=== PATIENT | male | born 1975 | race Hispanic/Latino ===

== ENCOUNTER 2019-06-16 08:09 | Emergency (ER) | payer SELFPAY ==
[2019-06-16] MEDS ORDERED: HYDROCODONE/APAP 10/325 TAB ONE (08:44)
--- NOTE | 2019-06-16 09:08 | EDPHYS ---
Physician Documentation [facility] Name: Gia Cruz Age: 43 yrs Sex: Male : 1975 Arrival Date: 06/16/2019 Time: 08:12 Bed 14 Private MD: DANIELLE Physician Vinay Hopper HPI: 06/16 09:02 This 43 yrs old Male presents to ER via Ambulatory with complaints of Mouth luisa Swelling, mouth pain. 09:02 The patient presents with pain, redness, swelling. The problem is located in the face luisa and lower left first bicuspid (#21). Onset: The symptoms/episode began/occurred 3 day(s) ago. Duration: The symptoms are continuous, and are steadily getting worse. Modifying factors: The symptoms are alleviated by nothing, the symptoms are aggravated by chewing, food, talking. Associated signs and symptoms: The patient has no apparent associated signs or symptoms. Severity of symptoms: At their worst the symptoms were mild, moderate, in the emergency department the symptoms are unchanged. The patient has experienced similar episodes in the past, several times. Historical: - Allergies: 08:24 No Known Allergies; ss - Home Meds: 08:24 None [Active]; ss - PMHx: 08:24 None; ss - PSHx: 08:24 None; ss - Immunization history:: Adult Immunizations up to date. - Social history:: Smoking status: Patient/guardian denies using tobacco. - Ebola Screening: : Patient denies exposure to infectious person Patient denies travel to an Ebola-affected area in the 21 days before illness onset. - Family history:: not pertinent. ROS: 09:02 Constitutional: Negative for fever, chills, and weight loss, Eyes: Negative for injury, luisa pain, redness, and discharge, Neck: Negative for injury, pain, and swelling, Cardiovascular: Negative for chest pain, palpitations, and edema, Respiratory: Negative for shortness of breath, cough, wheezing, and pleuritic chest pain, Abdomen/GI: Negative for abdominal pain, nausea, vomiting, diarrhea, and constipation, Back: Negative for injury and pain, : Negative for injury, bleeding, discharge, and swelling, MS/Extremity: Negative for injury and deformity, Skin: Negative for injury, rash, and discoloration, Neuro: Negative for headache, weakness, numbness, tingling, and seizure, Psych: Negative for depression, anxiety, suicide ideation, homicidal ideation, and hallucinations, Allergy/Immunology: Negative for hives, rash, and allergies, Endocrine: Negative for neck swelling, polydipsia, polyuria, polyphagia, and marked weight changes, Hematologic/Lymphatic: Negative for swollen nodes, abnormal bleeding, and unusual bruising. 09:02 ENT: Positive for dental pain, Gum pain Exam: :02 Constitutional: This is a well developed, well nourished patient who is awake, alert, luisa and in no acute distress. Head/Face: Normocephalic, atraumatic. Eyes: Pupils equal round and reactive to light, extra-ocular motions intact. Lids and lashes normal. Conjunctiva and sclera are non-icteric and not injected. Cornea within normal limits. Periorbital areas with no swelling, redness, or edema. Neck: Trachea midline, no thyromegaly or masses palpated, and no cervical lymphadenopathy. Supple, full range of motion without nuchal rigidity, or vertebral point tenderness. No Meningismus. Chest/axilla: Normal chest wall appearance and motion. Nontender with no deformity. No lesions are appreciated. Cardiovascular: Regular rate and rhythm with a normal S1 and S2. No gallops, murmurs, or rubs. Normal PMI, no JVD. No pulse deficits. Respiratory: Lungs have equal breath sounds bilaterally, clear to auscultation and percussion. No rales, rhonchi or wheezes noted. No increased work of breathing, no retractions or nasal flaring. Abdomen/GI: Soft, non-tender, with normal bowel sounds. No distension or tympany. No guarding or rebound. No evidence of tenderness throughout. Back: No spinal tenderness. No costovertebral tenderness. Full range of motion. Skin: Warm, dry with normal turgor. Normal color with no rashes, no lesions, and no evidence of cellulitis. MS/ Extremity: Pulses equal, no cyanosis. Neurovascular intact. Full, normal range of motion. Neuro: Awake and alert, GCS 15, oriented to person, place, time, and situation. Cranial nerves II-XII grossly intact. Motor strength 5/5 in all extremities. Sensory grossly intact. Cerebellar exam normal. Normal gait. Psych: Awake, alert, with orientation to person, place and time. Behavior, mood, and affect are within normal limits. 09:02 ENT: Mouth: Oral mucosa: moist, Gums: noted to have cellulitis, reddened, swollen, on the lower left first molar and lower left second bicuspid, Posterior pharynx: is normal, airway is patent, no acute changes. Vital Signs: 08:20 BP 133 / 94; dh3 08:24 Pulse 71; Resp 16; Temp 97.5(TE); Pulse Ox 100% on R/A; Weight 102.06 kg; Height 5 ft. ss 0 in. (152.40 cm); Pain 10/10; 09:19 BP 130 / 90; Pulse 70; Resp 16; Pulse Ox 100% ; Pain 7/10; jl7 08:24 Body Mass Index 43.94 (102.06 kg, 152.40 cm) ss MDM: 08:21 Patient medically screened. [facility] 09:04 Data reviewed: vital signs, nurses notes. [facility] Administered Medications: 08:50 Drug: [place] 10 mg-325 mg 1 tabs Route: PO; [facility] 09:18 Follow up: Response: No adverse reaction; Pain is decreased [facility] 09:14 Drug: KeFLEX 500 mg Route: PO; 09:18 Follow up: Response: Medication administered at discharge. [facility] Disposition: 06/16/19 09:06 Discharged to Home. Impression: Dental caries, Dental root caries, Dental caries, unspecified. - Condition is Stable. - Discharge Instructions: Dental Caries, Adult, Dental Pain, Dental Pain, [id number], Diet and Dental Disease, Dental Caries, [id number]. - Prescriptions for Keflex 500 mg Oral Capsule - take 1 capsule by ORAL route every 6 hours for 10 days; 40 capsule. Tylenol- Codeine #3 300-30 mg Oral Tablet - take 2 tablet by ORAL route every 6 hours As needed; 30 tablet. - Medication Reconciliation Form, Thank You Letter, Antibiotic Education, Prescription Opioid Use form. - Follow up: Private Physician; When: 2 - 3 days; Reason: Recheck today's complaints, Continuance of care, Re-evaluation by your physician. Follow up: Dandy Looney DDS; When: 2 - 3 days; Reason: Recheck today's complaints, Continuance of care, Re-evaluation by your physician. - Problem is new. - Symptoms have improved. Signatures: Vinay Hopper MD MD cha Smirch, Shelby, RN RN ss Jasmine Wray RN RN jl7 Corrections: (The following items were deleted from the chart) 09:19 09:06 06/16/2019 09:06 Discharged to Home. Impression: Dental caries; Dental root jl7 caries; Dental caries, unspecified. Condition is Stable. Forms are Medication Reconciliation Form, Thank You Letter, Antibiotic Education, Prescription Opioid Use. Follow up: Private Physician; When: 2 - 3 days; Reason: Recheck today's complaints, Continuance of care, Re-evaluation by your physician. Follow up: Dandy Looney; When: 2 - 3 days; Reason: Recheck today's complaints, Continuance of care, Re-evaluation by your physician. Problem is new. Symptoms have improved. luisa
--- NOTE | 2019-06-16 09:08 | ER ---
Nurse's Notes [facility] Name: Gia Cruz Age: 43 yrs Sex: Male : 1975 Arrival Date: 06/16/2019 Time: 08:12 Bed 14 Private MD: Diagnosis: Dental caries;Dental root caries;Dental caries, unspecified Presentation: 06/16 08:20 Presenting complaint: Patient states: jaw swelling and pain x 1 week. Patient denies ss fever, reports increased pain. Transition of care: patient was not received from another setting of care. Onset of symptoms was June 09, 2019. Risk Assessment: Do you want to hurt yourself or someone else? Patient reports no desire to harm self or others. Initial Sepsis Screen: Does the patient have a suspected source of infection? Yes: Other: jaw pain/ possible dental abscess. Initial Sepsis Screen: Does the patient meet any 2 criteria? No. Patient's initial sepsis screen is negative. Care prior to arrival: None. 08:20 Method Of Arrival: Ambulatory ss 08:20 Acuity: ABIGAIL 3 ss Historical: - Allergies: 08:24 No Known Allergies; ss - Home Meds: 08:24 None [Active]; ss - PMHx: 08:24 None; ss - PSHx: 08:24 None; ss - Immunization history:: Adult Immunizations up to date. - Social history:: Smoking status: Patient/guardian denies using tobacco. - Ebola Screening: : Patient denies exposure to infectious person Patient denies travel to an Ebola-affected area in the 21 days before illness onset. - Family history:: not pertinent. Screenin:30 Abuse screen: Denies threats or abuse. Denies injuries from another. Nutritional jl7 screening: No deficits noted. Tuberculosis screening: No symptoms or risk factors identified. Fall Risk None identified. Assessment: 08:30 General: Appears in no apparent distress. uncomfortable, Behavior is calm, cooperative, jl7 appropriate for age. Pain: Complains of pain in gums Pain currently is 10 out of 10 on a pain scale. Pain began 1 week ago Is continuous. Neuro: Level of Consciousness is awake, alert, obeys commands, Oriented to person, place, time, situation. Cardiovascular: Patient's skin is warm and dry. Respiratory: Airway is patent Respiratory effort is even, unlabored, Respiratory pattern is regular, symmetrical. EENT: Oral mucosa is dry. Poor dentition noted. Dental caries noted in lower left first bicuspid (#21). Derm: Skin is pink, warm \T\ dry. Vital Signs: 08:20 BP 133 / 94; dh3 08:24 Pulse 71; Resp 16; Temp 97.5(TE); Pulse Ox 100% on R/A; Weight 102.06 kg; Height 5 ft. ss 0 in. (152.40 cm); Pain 10/10; 09:19 BP 130 / 90; Pulse 70; Resp 16; Pulse Ox 100% ; Pain 7/10; jl7 08:24 Body Mass Index 43.94 (102.06 kg, 152.40 cm) ED Course: 08:12 Patient arrived in ED. cf2 08:21 Vinay Hopper MD is Attending Physician. [facility] 08:22 Triage completed. ss 08:24 Arm band placed on right wrist. 08:30 Patient has correct armband on for positive identification. Bed in low position. Call jl7 light in reach. Side rails up X 1. Pulse ox on. NIBP on. 08:33 Jasmine Wray, RN is Primary Nurse. jl7 08:50 No provider procedures requiring assistance completed. Patient did not have IV access jl7 during this emergency room visit. 09:06 Dandy Looney DDS is Referral Physician. [facility] Administered Medications: 08:50 Drug: [place] 10 mg-325 mg 1 tabs Route: PO; jl7 09:18 Follow up: Response: No adverse reaction; Pain is decreased jl7 09:14 Drug: KeFLEX 500 mg Route: PO; 09:18 Follow up: Response: Medication administered at discharge. jl7 Outcome: 09:06 Discharge ordered by . [facility] 09:19 Discharged to home ambulatory. jl7 09:19 Condition: stable 09:19 Discharge instructions given to patient, family, Instructed on discharge instructions, follow up and referral plans. medication usage, Demonstrated understanding of instructions, follow-up care, medications, Prescriptions given X 2. 09:19 Patient left the ED. jl7 Signatures: Vinay Hopper MD MD cha Smirch, Shelby, RN RN Jasmine Wray, NGA RN 7 Kelly Wolfe [facility] Mayelin Heredia 2
[2019-06-16] MEDS ORDERED: CEPHALEXIN 250 MG CAP ONE (09:14)
== END 2019-06-16 09:19 | disposition home or self-care (01) ==
LOC: ER 08:09
DX: K02.9 Dental caries, unspecified (principal); K02.7 Dental root caries
CPT/HCPCS: 99283

== ENCOUNTER 2023-07-13 17:50 | Emergency (ER) | payer OTHER, SELFPAY ==
--- OUTSIDE RECORDS SUMMARY | 2023-07-13 18:05 | XMS REPORT | Continuity of Care Document ---
:1975 Author Organization [facility] t Address [address] [place] [address] Care Team Providers Name Role Phone Unavailable Unavailable Unavailable Problems This patient has no known problems. Allergies, Adverse Reactions, Alerts This patient has no known allergies or adverse reactions. Medications This patient has no known medications. Procedures This patient has no known procedures. Encounters Start End Encounter Admission Attending Care Care Encounter Source Date/Time Date/Time Type Type Clinicians Facility Department ID 2023-06-03 2023-06-03 Outpatient [facility] [id number] 15:48:12 15:48:12 [id number] [address] [facility] Results This patient has no known results.
--- NOTE | 2023-07-13 19:10 | RAD REPORT ---
EXAM DESCRIPTION: RAD - Foot Left 3 View - 07/13/2023 6:37 pm CLINICAL HISTORY: PAIN COMPARISON: No comparisons FINDINGS: There is a fracture of the distal shaft of the fifth metatarsal. The fracture is mildly co mminuted. Small calcaneal spurs. No dislocation.
--- NOTE | 2023-07-13 20:19 | EDPHYS ---
Physician Documentation [facility] Name: Gia Cruz Age: 47 yrs Sex: Male : 1975 Arrival Date: 07/13/2023 Time: 17:50 Bed 11 Private MD: ED Physician Preston Resendiz HPI: 07/13 21:08 This 47 yrs old Male presents to ER via Ambulatory with complaints of Foot kb Injury. 21:08 The patient presents with pain, tenderness. The complaints affect the left foot. kb Context: The problem was sustained at home, resulted from a mis-step by the patient, the patient can fully bear weight, the patient is able to ambulate. Onset: The symptoms/episode began/occurred today. Modifying factors: The symptoms are alleviated by nothing, the symptoms are aggravated by weight bearing, movement. Associated signs and symptoms: The patient has no apparent associated signs or symptoms. Severity of symptoms: At their worst the symptoms were moderate, in the emergency department the symptoms are unchanged. The patient has not experienced similar symptoms in the past. The patient has not recently seen a physician. Historical: - Allergies: 18:03 No Known Allergies; mb9 - Home Meds: 18:03 None [Active]; mb9 - PMHx: 18:03 None; mb9 - PSHx: 18:03 Appendectomy; mb9 - Immunization history:: Adult Immunizations up to date. - Social history:: Smoking status: Patient denies any tobacco usage or history of. ROS: 21:07 Constitutional: Negative for fever, chills, and weight loss, kb 21:07 MS/extremity: Positive for pain, of the left foot, 21:07 All other systems are negative, Exam: 21:07 Constitutional: This is a well developed, well nourished patient who is awake, alert, kb and in no acute distress. Head/Face: Normocephalic, atraumatic. ENT: Moist Mucous membranes Cardiovascular: Regular rate Respiratory: Respirations even and unlabored. No increased work of breathing. Talking in full sentences Skin: Warm, dry with normal turgor. Normal color. Neuro: Awake and alert, GCS 15, oriented to person, place, time, and situation. Moves all extremities. Normal gait. 21:07 Musculoskeletal/extremity: Extremities: grossly normal except: noted in the lateral side of left foot: pain, tenderness, ROM: intact in all extremities, Circulation is intact in all extremities. Sensation intact. Weight bearing: able to fully bear weight, Vital Signs: 18:02 BP 158 / 92; Pulse 92; Resp 18; Temp 98.2(O); Pulse Ox 100% on R/A; Weight 117.93 kg; mb9 Height 5 ft. 10 in. ; Pain 10/10; 20:45 BP 142 / 89; Pulse 89; Resp 16; Pulse Ox 99% on R/A; Pain 5/10; pf1 18:02 Body Mass Index 37.30 (117.93 kg, 177.8 cm) mb9 18:02 Pain Scale: Adult mb9 20:45 Pain Scale: Adult pf1 MDM: 17:55 Patient medically screened. kb 21:07 Differential diagnosis: dislocation, closed fracture, contusion. Data reviewed: vital kb signs, nurses notes. Counseling: I had a detailed discussion with the patient and/or guardian regarding the historical points, exam findings, and any diagnostic results supporting the discharge/admit diagnosis, radiology results, the need for outpatient follow up, a orthopedic surgeon, to return to the emergency department if symptoms worsen or persist or if there are any questions or concerns that arise at home. 07/13 18:03 Order name: Foot Left 3 View XRAY; Complete Time: 19:18 kb 07/13 20:18 Order name: Post-op shoe; Complete Time: 20:49 kb Administered Medications: 18:45 Not Given (Patient Refused): [id number] mg PO once mb9 20:15 Drug: Ibuprofen PO 800 mg PO once Route: PO; pf1 20:50 Follow up: Response: No adverse reaction; Marked relief of symptoms; Pain is decreased pf1 20:45 Drug: [place] PO 10 mg-325 mg 1 tabs PO once Route: PO; pf1 20:50 Follow up: Response: No adverse reaction; Marked relief of symptoms; Pain is decreased pf1 Disposition: 21:12 I was immediately available on-site in the Emergency Department for consultation in the ms3 care of the patient. Disposition Summary: 07/13/23 20:18 Discharge Ordered Notes: Location: Home kb Condition: Stable kb Diagnosis - Displaced fracture of fifth metatarsal bone, left foot kb Followup: kb - With: Emergency Department - When: As needed - Reason: Worsening of condition Followup: kb - With: Private Physician - When: 2 - 3 days - Reason: Recheck today's complaints, Continuance of care, Re-evaluation by your physician Discharge Instructions: - Discharge Summary Sheet kb - Metatarsal Fracture kb Forms: - Medication Reconciliation Form kb - Thank You Letter kb - Antibiotic Education kb - Prescription Opioid Use kb - Patient Portal Instructions kb - Leadership Thank You Letter kb Prescriptions: - Diclofenac Sodium 75 mg Oral tablet, delayed release (enteric coated) - take 1 tablet ORAL route 2 times per day As needed; 30 tablet; Refills: 0, kb Product Selection Permitted Signatures: Dispatcher [employer] EDMS Josefina Finn, DRIVER MANAGER-C DRIVER MANAGER-Lawrenceb Preston Resendiz, DO ms3 Serina Tadeo RN RN mb9 Diamond Rajan RN RN pf1
--- NOTE | 2023-07-13 20:19 | ER ---
Nurse's Notes [facility] Name: Gia Cruz Age: 47 yrs Sex: Male : 1975 Arrival Date: 07/13/2023 Time: 17:50 Bed 11 Private MD: Diagnosis: Displaced fracture of fifth metatarsal bone, left foot Presentation: 07/13 18:02 Chief complaint: Patient states: "I stepped wrong and twisted my left foot". mb9 Coronavirus screen: At this time, the client does not indicate any symptoms associated with coronavirus-19. Ebola Screen: No symptoms or risks identified at this time. Initial Sepsis Screen: Does the patient meet any 2 criteria? No. Patient's initial sepsis screen is negative. Does the patient have a suspected source of infection? No. Patient's initial sepsis screen is negative. Risk Assessment: Do you want to hurt yourself or someone else? Patient reports no desire to harm self or others. Onset of symptoms was July 13, 2023. 18:02 Method Of Arrival: Ambulatory 9 18:02 Acuity: ABIGAIL 4 mb9 Triage Assessment: 18:03 General: Appears in no apparent distress. Behavior is calm, cooperative. Pain: mb9 Complains of pain in left foot Quality of pain is described as throbbing, Pain began suddenly, Aggravated by increased activity, repositioning, weight bearing. Neuro: [place] Agitation-Sedation Scale (RASS): 0 - Alert and Calm Level of Consciousness is awake, alert, obeys commands, Oriented to person, place, time, situation, Appropriate for age. Cardiovascular: Patient's skin is warm and dry. Respiratory: Airway is patent Respiratory effort is even, unlabored, Respiratory pattern is regular, symmetrical. Derm: Skin is pink, warm \\T\\ dry. Musculoskeletal: Range of motion: intact in all extremities. Historical: - Allergies: 18:03 No Known Allergies; mb9 - Home Meds: 18:03 None [Active]; mb9 - PMHx: 18:03 None; mb9 - PSHx: 18:03 Appendectomy; mb9 - Immunization history:: Adult Immunizations up to date. - Social history:: Smoking status: Patient denies any tobacco usage or history of. Screenin:50 [facility] ED Fall Risk Assessment (Adult) History of falling in the last 3 months, pf1 including since admission No falls in past 3 months (0 pts) Confusion or Disorientation No (0 pts) Intoxicated or Sedated No (0 pts) Impaired Gait Yes (1 pt) Mobility Assist Device Used No (0 pt) Altered Elimination No (0 pt) Score/Fall Risk Level 0 - 2 = Low Risk Oriented to surroundings, Maintained a safe environment, Educated pt \\T\\ family on fall prevention, incl call for assistance when getting out of bed, Assessed \\T\\ reinforced patient's understanding of fall precautions, Provided non-skid footwear, Hourly rounding (assess needs \\T\\ fall precautionary measures) done, Used ambulatory aids as needed (educated on \\T\\ assisted with), Used gait belt as appropriate. 19:50 Abuse screen: Denies threats or abuse. Nutritional screening: No deficits noted. pf1 Tuberculosis screening: No symptoms or risk factors identified. Assessment: 19:50 General: Appears in no apparent distress. comfortable, well groomed, well developed, pf1 Behavior is calm, cooperative, appropriate for age, quiet. 19:50 Pain: Complains of pain in left foot Pain currently is 7 out of 10 on a pain scale. pf1 Neuro: No deficits noted. Level of Consciousness is awake, alert, obeys commands, Oriented to person, place, time, situation. Cardiovascular: No deficits noted. Capillary refill < 3 seconds Patient's skin is warm and dry. Respiratory: No deficits noted. Airway is patent Respiratory effort is even, unlabored, Respiratory pattern is regular, symmetrical. GI: No deficits noted. No signs and/or symptoms were reported involving the gastrointestinal system. : No deficits noted. No signs and/or symptoms were reported regarding the genitourinary system. EENT: No deficits noted. No signs and/or symptoms were reported regarding the EENT system. Derm: No deficits noted. No signs and/or symptoms reported regarding the dermatologic system. Musculoskeletal: Reports pain in left foot. Vital Signs: 18:02 BP 158 / 92; Pulse 92; Resp 18; Temp 98.2(O); Pulse Ox 100% on R/A; Weight 117.93 kg; mb9 Height 5 ft. 10 in. ; Pain 10/10; 20:45 BP 142 / 89; Pulse 89; Resp 16; Pulse Ox 99% on R/A; Pain 5/10; pf1 18:02 Body Mass Index 37.30 (117.93 kg, 177.8 cm) mb9 18:02 Pain Scale: Adult mb9 20:45 Pain Scale: Adult pf1 ED Course: 17:54 Patient arrived in ED. mg5 17:55 Josefina Finn [facility]C [facility] kb 17:55 Preston Resendiz DO is Attending Physician. kb 18:02 Arm band placed on. mb9 18:03 Triage completed. mb9 18:39 Foot Left 3 View XRAY In Process Unspecified. EDMS 19:50 Patient has correct armband on for positive identification. Call light in reach. pf1 19:50 No provider procedures requiring assistance completed. Patient did not have IV access pf1 during this emergency room visit. 20:40 Ortho shoe applied to left foot. pf1 20:50 Provided Education on: prescription. pf1 Administered Medications: 18:45 Not Given (Patient Refused): [id number] mg PO once mb9 20:15 Drug: Ibuprofen PO 800 mg PO once Route: PO; pf1 20:50 Follow up: Response: No adverse reaction; Marked relief of symptoms; Pain is decreased pf1 20:45 Drug: [place] PO 10 mg-325 mg 1 tabs PO once Route: PO; pf1 20:50 Follow up: Response: No adverse reaction; Marked relief of symptoms; Pain is decreased pf1 Medication: 20:50 VIS not applicable for this client. pf1 Outcome: 20:18 Discharge ordered by MD. kb 20:50 Discharged to home ambulatory, with family, pf1 20:50 Condition: improved 20:50 Discharge instructions given to patient, Instructed on discharge instructions, follow up and referral plans. Demonstrated understanding of instructions, follow-up care, medications, Prescriptions given X 1, 20:50 Patient left the ED. pf1 Signatures: Dispatcher [employer] EDIN Josefina Finn FNP-C FNP-Ckb Breneman, Mary Beth, RN RN mb9 Diamond Rajan RN RN pf1 Dorinda Boyer mg5 Corrections: (The following items were deleted from the chart) 18:04 18:02 Pulse 92bpm; Resp 18bpm; Pulse Ox 100% RA; Temp 98.2F Oral; 117.93 kg; Height 5 mb9 ft. 10 in.; BMI: 37.3; Pain 10/10, Adult; mb9
[2023-07-13] MEDS ORDERED: IBUPROFEN 400 MG TAB ONE (20:28)
[2023-07-13] MEDS ORDERED: HYDROCODONE/APAP 10/325 TAB ONE (20:41)
== END 2023-07-13 20:50 | disposition home or self-care (01) ==
LOC: ER 17:50
DX: S92.352A Displaced fracture of fifth metatarsal bone, left foot, initial encounter for closed fracture (principal)